=== PATIENT | male | born 1985 | race Two or more races ===

== ENCOUNTER 2023-04-27 07:40 | Emergency (ER) | payer OTHER ==
[2023-04-27 07:47] VITALS: PULSE 60; TEMP 97.8; BMI 26.4
[2023-04-27] MEDS ORDERED: FAMOTIDINE 20 MG/50 ML IVPB 20 MG/50 ML MG IVPB ONE ×2 (08:58→10:03)
[2023-04-27] MEDS ORDERED: ACETAMINOPHEN 1000 MG/100 ML BAG IVPB ONE (08:58)
[2023-04-27 09:49] LABS: BASO % 0.7 % (0-2.0); EOS % 1.5 % (0-4.5); HEMATOCRIT 45.2 % (35.4-49); HEMOGLOBIN 15.2 GM/dL (11.7-16.9); LYMPH % 35.3 % (8-40); MCH 29.7 pg (25.7-33.7); MCHC 33.6 g/dl (32.0-35.9); MEAN CELL VOLUME 88.4 fl (80-96); MEAN PLT VOLUME 10.5 fl (7.5-11.1); MONO % 11.1 % (3.8-10.2); NEUT % 51.4 % (42.8-82.8); PLATELET COUNT 149 10^3/uL (134-434); RBC 5.12 M/mm3 (4.00-5.60); RDW 12.6 % (11.9-15.9); WHITE BLOOD COUNT 5.1 K/mm3 (4.0-10.0)
[2023-04-27 10:08] LABS: POTASSIUM 4.3 mmol/L (3.5-5.1)
[2023-04-27 10:10] LABS: CALCIUM 9.1 mg/dL (8.5-10.1)
[2023-04-27 10:11] LABS: ALBUMIN 3.7 g/dl (3.4-5.0); BLOOD UREA NITROGEN 13.2 mg/dL (7-18); MAGNESIUM 1.9 mg/dL (1.8-2.4)
[2023-04-27 10:16] LABS: BILIRUBIN,TOTAL 0.6 mg/dL (0.2-1); TOT PROT 7.4 g/dl (6.4-8.2)
[2023-04-27 12:29] VITALS: BP 122/77; RESP 16
== END 2023-04-27 12:29 | disposition home or self-care (01) ==
LOC: JER 07:40
PROC: 3E033GC Introduction of Other Therapeutic Substance into Peripheral Vein, Percutaneous Approach (ICD-10-PCS; principal; 2023-04-27)
PROC: 3E033NZ Introduction of Analgesics, Hypnotics, Sedatives into Peripheral Vein, Percutaneous Approach (ICD-10-PCS; 2023-04-27)
DX: R10.84 Generalized abdominal pain (principal); M54.50 Low back pain, unspecified; R14.0 Abdominal distension (gaseous); K59.00 Constipation, unspecified; R11.0 Nausea; R07.9 Chest pain, unspecified
CPT/HCPCS: 36415; 74177-TC; 80053; 83690; 83735; 84484; 85025; 93005; 93010; 99285-25; Q9967